=== PATIENT | female | born 1990 | race Two or more races ===

== ENCOUNTER 2017-06-19 18:42 | Emergency (ER) | payer OTHER ==
[2017-06-19 20:23] LABS: BILIRUBIN,URINE NEGATIVE (NEG); CLARITY,URINE CLOUDY; COLOR,URINE YELLOW; GLUCOSE,URINE NEGATIVE (NEG); NITRITE,URINE NEGATIVE (NEG); PROTEIN,URINE NEGATIVE (NEG-TRACE)
[2017-06-19 20:24] LABS: URINE HCG POC HCG NEGATIVE (Negative)
[2017-06-19 20:30] LABS: ADD MAN DIFF? NO
[2017-06-19 20:32] LABS: BASO # 0.1 x10^3/uL (0.0-0.2); BASO % 1 % (0-3); EOS # 0.3 x10^3/uL (0.0-0.7); EOS % 3 % (0-3); LYMPH # 2.7 x10^3/uL (1.0-4.8); LYMPH % 27 % (24-48); MEAN CORPUSCULAR HEMOGLOBIN 29 pg (25-35); MEAN CORPUSCULAR HGB CONC 33 g/dL (31-37); MEAN CORPUSCULAR VOLUME 87 fL (79-100); MONO # 0.6 x10^3/uL (0.0-1.1); MONO % 6 % (0-9); NEUT # 6.4 x10^3uL (1.8-7.7); NEUT % 64 % (31-73); PLATELET COUNT 247 x10^3/uL (140-400); RED BLOOD COUNT 4.83 x10^6/uL (3.50-5.40); RED CELL DISTRIBUTION WIDTH 13.5 % (11.5-14.5)
[2017-06-19 20:42] LABS: BACTERIA,URINE MODERATE /HPF (0-FEW); RBC,URINE 0 /HPF (0-2)
[2017-06-19 20:43] LABS: ANION GAP 9 (6-14); BLOOD UREA NITROGEN 13 mg/dL (7-20); BUN/CREATININE RATIO 13 (6-20); CALCIUM 8.1 mg/dL (8.5-10.1); CARBON DIOXIDE 27 mmol/L (21-32); CHLORIDE 107 mmol/L (98-107); GFR 67.6; GLUCOSE 104 mg/dL (70-99); POTASSIUM 3.9 mmol/L (3.5-5.1); SODIUM 143 mmol/L (136-145); SQUAMOUS EPITHELIAL CELL,UR MANY /LPF
[2017-06-19 20:49] LABS: ALBUMIN 3.6 g/dL (3.4-5.0); ALBUMIN/GLOBULIN RATIO 1.3 (1.0-1.7); ALK PHOS 106 U/L (46-116); ALT (SGPT) 21 U/L (14-59); AST (SGOT) 12 U/L (15-37); LIPASE 139 U/L (73-393); TOTAL BILIRUBIN 0.2 mg/dL (0.2-1.0); TOTAL PROTEIN 6.4 g/dL (6.4-8.2)
[2017-06-19] MEDS: LIDO:MAALOX:DONNATAL 1:1:1 15 ML SINGLE DOSE PO (21:10)
[2017-06-19] MEDS: FAMOTIDINE 20 MG/2 ML VIAL IVP (21:10)
== END 2017-06-19 22:37 | disposition home or self-care (01) ==
LOC: ER 18:42
DX: N39.0 Urinary tract infection, site not specified (principal)
CPT/HCPCS: 36415; 76705; 80053; 81001; 81025; 83690; 85025; 87086; 96374; 99285-25; S0028

== ENCOUNTER 2017-10-23 14:38 | Emergency (ER) | payer SELFPAY ==
[~2017-10-23] VITALS: Ht 149.9 cm; Wt 63.5 kg
[~2017-10-23 14:38] MED LIST: FAMO40TA57 PO; NITR100C62 PO
[2017-10-23 15:00] VITALS: BP 106/59
--- NOTE | 2017-10-23 15:44 | RAD ---
3 views right hand 10/23/2017 3:22 PM Indication: 3rd finger injury with swelling and pain today Comparison: None Findings: There is an acute, small avulsion injury involving the volar, proximal aspect of the third middle phalanx. This is best seen on lateral most view. No dislocation is seen. No other fractures are identified. Soft tissue edema surrounding the third PIP joint is noted. IMPRESSION: Small acute traumatic avulsion fracture involving the volar aspect of the proximal aspect of the third middle phalanx Electronically signed by: Reese Simental MD (10/23/2017 3:40 PM) [facility]
--- NOTE | 2017-10-23 15:47 | PHYS DOC ---
Past Medical History Past Medical History: No Pertinent History Past Surgical History: No Surgical History Alcohol Use: None Drug Use: None Adult General Chief Complaint Chief Complaint: FINGER INJURY HPI HPI Patient is a 27 year old [f__sex] who presents with [] Review of Systems Review of Systems Constitutional: Denies fever or chills [] Eyes: Denies change in visual acuity, redness, or eye pain [] HENT: Denies nasal congestion or sore throat [] Respiratory: Denies cough or shortness of breath [] Cardiovascular: No additional information not addressed in HPI [] GI: Denies abdominal pain, nausea, vomiting, bloody stools or diarrhea [] : Denies dysuria or hematuria [] Musculoskeletal: Denies back pain or joint pain [] Integument: Denies rash or skin lesions [] Neurologic: Denies headache, focal weakness or sensory changes [] Endocrine: Denies polyuria or polydipsia [] All other systems were reviewed and found to be within normal limits, except as documented in this note. Allergies Allergies Allergies Coded Allergies Type Severity Reaction Last Updated Verified No Known Drug Allergies 06/28/13 No Physical Exam Physical Exam Constitutional: Well developed, well nourished, no acute distress, non-toxic appearance. [] HENT: Normocephalic, atraumatic, bilateral external ears normal, oropharynx moist, no oral exudates, nose normal. [] Eyes: PERRLA, EOMI, conjunctiva normal, no discharge. [] Neck: Normal range of motion, no tenderness, supple, no stridor. [] Cardiovascular:Heart rate regular rhythm, no murmur [] Lungs & Thorax: Bilateral breath sounds clear to auscultation [] Abdomen: Bowel sounds normal, soft, no tenderness, no masses, no pulsatile masses. [] Skin: Warm, dry, no erythema, no rash. [] Back: No tenderness, no CVA tenderness. [] Extremities: No tenderness, no cyanosis, no clubbing, ROM intact, no edema. [] Neurologic: Alert and oriented X 3, normal motor function, normal sensory function, no focal deficits noted. [] Psychologic: Affect normal, judgement normal, mood normal. [] Current Patient Data Vital Signs Vital Signs Date Time Temp Pulse Resp B/P (MAP) Pulse Ox O2 Delivery O2 Flow Rate FiO2 10/23/17 15:00 98.2 77 16 106/59 (75) 98 Room Air 98.2 EKG EKG [] Radiology/Procedures Radiology/Procedures [] Signed PATIENT: PINEDA STUART ACCOUNT: [id number] : 1990 LOCATION: ER AGE: 27 SEX: F EXAM STATUS: REG ER ORD. PHYSICIAN: NON,STAFF REASON: 3rd finger injury with swelling and pain today PROCEDURE: HAND RIGHT 3V 3 views right hand 10/23/2017 3:22 PM Indication: 3rd finger injury with swelling and pain today Comparison: None Findings: There is an acute, small avulsion injury involving the volar, proximal aspect of the third middle phalanx. This is best seen on lateral most view. No dislocation is seen. No other fractures are identified. Soft tissue edema surrounding the third PIP joint is noted. IMPRESSION: Small acute traumatic avulsion fracture involving the volar aspect of the proximal aspect of the third middle phalanx Electronically signed by: Reese Ahn MD (10/23/2017 3:40 PM) [facility] DICTATED and SIGNED BY: REESE AHN MD DATE: 10/23/171531 Course & Med Decision Making Course & Med Decision Making Pertinent Labs and Imaging studies reviewed. (See chart for details) [] Dragon Disclaimer Dragon Disclaimer This electronic medical record was generated, in whole or in part, using a voice recognition dictation system. Departure Departure Impression: Primary Impression: Finger fracture Disposition: 01 HOME, SELF-CARE Condition: STABLE Referrals: NO PCP (PCP) ARMANDO IZAGUIRRE II, MD Patient Instructions: Finger Fracture Additional Instructions: Take medication as directed for pain. Do not drive or operate heavy machinery while taking this medication. Follow-up with orthopedics for evaluation of this fracture within the week. If worsening please return to the emergency department. Scripts Hydrocodone/Apap 5-325 (NORCO 5-325 TABLET) 1 Each Tablet 1 TAB PO PRN Q6HRS PRN for PAIN, #14 TAB 0 Refills Prov: BALAJI JUSTIN APRN 10/23/17 BALAJI JUSTIN APRN Oct 23, 2017 15:47
[2017-10-23] MEDS ORDERED: HYDR-971 PO (16:07)
== END 2017-10-23 16:23 | disposition home or self-care (01) ==
LOC: ER 14:38
DX: S62.612A Displaced fracture of proximal phalanx of right middle finger, initial encounter for closed fracture (principal); W23.1XXA Caught, crushed, jammed, or pinched between stationary objects, initial encounter; Y93.89 Activity, other specified; Y92.89 Other specified places as the place of occurrence of the external cause; Y99.8 Other external cause status
CPT/HCPCS: 29130; 73130; 99284

== ENCOUNTER 2017-11-26 13:46 | Emergency (ER) | payer SELFPAY ==
[~2017-11-26 13:46] MED LIST changes: +HYDR-971 PO
== END 2017-11-26 15:54 | disposition left against medical advice (07) ==
LOC: ER 13:46
DX: R51 Headache (principal); Z53.21 Procedure and treatment not carried out due to patient leaving prior to being seen by health care provider

== ENCOUNTER 2017-12-13 09:18 | Emergency (ER) | payer SELFPAY ==
[~2017-12-13] VITALS: Ht 152.4 cm; Wt 63.5 kg
[2017-12-13 09:34] VITALS: BP 112/64
[2017-12-13] MEDS ORDERED: ACETAMINOPHEN 500 MG TABLET PO ONE (10:15)
--- NOTE | 2017-12-13 10:45 | RAD ---
3 views left ankle 12/13/2017 9:38 AM Indication: pain lateral ankle and top of foot injury last night Comparison: None Findings: There is no acute fracture or dislocation. Articular surfaces are uninterrupted and smooth. Soft tissue edema is noted about the lateral and anterior ankle. Impression: No evidence of acute osseous abnormality. Electronically signed by: Reese Simental MD (12/13/2017 10:41 AM) [facility]
--- NOTE | 2017-12-13 10:57 | RAD ---
Examination: FOOT LEFT 3V History: pain lateral ankle and top of foot injury last night Comparison/Correlation: None Findings: Total 3 images of the left foot were obtained. Joint spaces are normal. No acute fracture or bone destruction. Soft tissues are unremarkable. No degenerative change. Impression: Normal left foot 3 view x-ray exam. Electronically signed by: Hussein Rivas MD (12/13/2017 10:53 AM) [id number]
--- NOTE | 2017-12-13 11:58 | PHYS DOC ---
Past Medical History Past Medical History: No Pertinent History Past Surgical History: No Surgical History Alcohol Use: None Drug Use: None Adult General Chief Complaint Chief Complaint: FOOT INJURY PAIN HPI HPI Patient is a 27 year old female left ankle injury she heard a pop when she was wrestling with her brother lateral aspect no foot tenderness or pain she says Current Medications Current Medications Current Medications Medications (Trade) Dose Ordered Sig/Eugenie Start Time Stop Time Status Last Admin Dose Admin Acetaminophen (Tylenol) 1,000 mg 1X ONCE 12/13/17 10:15 12/13/17 10:16 DC 12/13/17 10:25 1,000 MG Allergies Allergies Allergies Coded Allergies Type Severity Reaction Last Updated Verified No Known Drug Allergies 06/28/13 No Physical Exam Physical Exam Constitutional: Well developed, well nourished, no acute distress, non-toxic appearance. [] HENT: Normocephalic, atraumatic, bilateral external ears normal, oropharynx moist, no oral exudates, nose normal. [] Eyes: PERRLA, EOMI, conjunctiva normal, no discharge. [] Neck: Normal range of motion, no tenderness, supple, no stridor. [] Pulmonary: Normal respiratory effort no increased work of breathing no obvious chest wall trauma Skin: Warm, dry, no erythema, no rash. [] Back: No tenderness, no CVA tenderness. [] Extremities: Tenderness to palpation noted a TFL on the left no fifth metatarsal tenderness Neurologic: Alert and oriented X 3, normal motor function, normal sensory function, no focal deficits noted. [] Psychologic: Affect normal, judgement normal, mood normal. [] Current Patient Data Vital Signs Vital Signs Date Time Temp Pulse Resp B/P (MAP) Pulse Ox O2 Delivery O2 Flow Rate FiO2 12/13/17 09:34 98.3 91 18 112/64 (80) 98 Room Air 98.3 EKG EKG [] Radiology/Procedures Radiology/Procedures [] Course & Med Decision Making Course & Med Decision Making Pertinent Labs and Imaging studies reviewed. (See chart for details) []X-rays negative ankle sprain reassurance provided Myron Disclaimer Dragon Disclaimer This electronic medical record was generated, in whole or in part, using a voice recognition dictation system. Departure Departure Impression: Primary Impression: Ankle sprain Disposition: HOME, SELF-CARE Condition: STABLE Patient Instructions: Ankle Sprain RADHA HUA MD Dec 13, 2017 11:58
== END 2017-12-13 11:01 | disposition home or self-care (01) ==
LOC: ER 09:18
DX: S93.402A Sprain of unspecified ligament of left ankle, initial encounter (principal); X58.XXXA Exposure to other specified factors, initial encounter; Y93.72 Activity, wrestling; Y92.89 Other specified places as the place of occurrence of the external cause; Y99.8 Other external cause status
CPT/HCPCS: 73610; 73630; 99284

== ENCOUNTER 2021-02-23 15:26 | Emergency (ER) | payer OTHER ==
[~2021-02-23] VITALS: Ht 152.4 cm; Wt 65.5 kg
[~2021-02-23 15:26] MED LIST changes: +HYDR-3164 PO; -HYDR-971 PO
[2021-02-23 15:58] VITALS: BP 105/66
[2021-02-23] MEDS ORDERED: MUPI22OI2 TP (16:06)
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
== END 2021-02-23 17:22 | disposition home or self-care (01) ==
LOC: ER 15:26
DX: T22.20XA Burn of second degree of shoulder and upper limb, except wrist and hand, unspecified site, initial encounter (principal); X19.XXXA Contact with other heat and hot substances, initial encounter; Y93.89 Activity, other specified; Y92.89 Other specified places as the place of occurrence of the external cause; Y99.8 Other external cause status
CPT/HCPCS: 16020; 99282